=== PATIENT | female | born 1985 | race Caucasian/White ===

== ENCOUNTER 2017-02-12 03:40 | Inpatient (IN) | payer OTHER ==
[~2017-02-12] VITALS: Ht 154.9 cm; Wt 94.8 kg
[~2017-02-12 03:40] MED LIST: VICODIN 5-3251 EACH PO
[2017-02-12] MEDS ORDERED: Carboprost 250 mCg/mL Inj IM PRN ×2 (11:55→19:55)
[2017-02-12] MEDS ORDERED: Methylergonovine 0.2 mg/mL Inj IM PRN ×2 (11:55→19:55)
[2017-02-12] MEDS ORDERED: Lactated Ringer's 1,000 ML IV PRN (11:55)
[2017-02-12] MEDS ORDERED: Hemorrhage Kit, Post Partum XX ONE ×2 (11:55→19:55)
[2017-02-12] MEDS ORDERED: Sodium Chloride LOK Flush 10 mL Syringe IVFLUSH PRN (11:55)
[2017-02-12] MEDS ORDERED: Oxytocin 30 Units/500 mL LR 30 UNITS in IV Premix 1 EACH IV PRN ×2 (11:55→19:55)
[2017-02-12] MEDS ORDERED: Oxytocin 10 Unit/mL Inj IM PRN ×2 (11:55→19:55)
[2017-02-12] MEDS ORDERED: fentaNYL-PF 50 mCg/mL 2 mL Inj IVPUSH PRN (11:55)
[2017-02-12] MEDS ORDERED: Misoprostol 25 mCg/0.25 Tablet VAGINAL ONE ×2 (12:40→17:00)
[2017-02-12] MEDS ORDERED: Vancomycin Inj 1,000 MG in IV Premix 1 EACH IV ONE (12:40)
[2017-02-12 12:45] LABS: Mean Corpuscular Hemoglobin 29.7 pg (27.0-35.0); Mean Corpuscular Volume 91.9 fL (81-100)
[2017-02-12] MEDS ORDERED: Vancomycin Inj 1,000 MG in IV Premix 1 EACH IV SCH (12:46)
[2017-02-12] MEDS ORDERED: DOCO200C5 PO (13:49)
--- NOTE | 2017-02-12 18:35 | PCM.HPANE ---
Patient Data Surgeon Admitting Provider:Jacob Faith MD Attending Provider:Jacob Faith MD Primary Care Physician:Jacob Faith MD Other Provider:Gregory Peres Anesthesia Reason for Visit Induction INDUCTION Ht/WT & BMI Body Mass Index Allergies Coded Allergies: Penicillins (Verified Allergy, Severe, Anaphylaxis, 12/18/12) Diabetes History Hx Diabetes?: No MRSA MRSA: No Medications Active Scripts Hydrocod/APAP-Expunged, Do Not Renew! (VICODIN 5/325-Expunged Drug, Do Not Renew )1 Each Tablet1-2 Tab PO q4h prn #30 TAB Prov:Jacob Faith MD 12/20/12 Reported Medications Docosahexanoic Acid ( Dha)200 Mg [id number] Mg PO DAILY 02/12/17 History History of ENT Problems?: No Hx of Heart Problems?: No Hx of Respiratory Problem?: No Hx Neurologic Problems?: No Hx of GI Problems?: No Hx of Problems?: No Female Hx: Positive for:: Currently Hx Diabetes: No Smoking Status: Never Smoker Stop/Bang Risk Assessment Category Category 1A: Patient has history of documented sleep apnea, and HAS NOT received any narcotic, sedative or anesthesia administration during this stay. Category 1B: Patient has history of documented sleep apnea, and HAS received any narcotic , sedative or anesthesia administration during this stay Category 2: Patient has SUSPECTED Obstructive Sleep Apnea, and HAS received any narcotic , sedative or anesthesia administration during this stay. Category 3: Patient has SUSPECTED Obstructive Sleep Apnea and HAS NOT received narcotic, sedative or anesthesia administration during this stay. Category 4: Outpatient in Procedural Areas with known sleep apnea or who screen positive for High Risk via the STOP/BANG questionnaire. Meds/Labs/Diagnostics Admission Meds Current Medications Misoprostol 25 mcg 25 mcg ONCE ONCE VAGINAL Last administered on 02/12/17 12: 49; Start 02/12/17 at 12:40; Stop 02/12/17 at 12:41; Status DC Vancomycin/0.9 % Sod Chloride/ Premix (Vancomycin Inj/ IV Premix) 200 ml @ 106.667 mls/hr Q12 IV Last administered on 02/12/17 13:00; Start 02/12/17 at 12:46 Misoprostol (Cytotec) 25 mcg ONCE ONCE VAGINAL Last administered on 9/29/17at 17:06; Start 02/12/17 at 17:00; Stop 02/12/17 at 17:01; Status DC Labs Test 02/12/17 12:30 White Blood Count 7.1th/mm3 (3.8-10.1) Red Blood Count 3.47mil/mm3 (3.90-5.20) Hemoglobin 10.3g/dL (12.0-15.6) Hematocrit 31.9% (35.0-46.0) Mean Corpuscular Volume 91.9fL (81-100) Mean Corpuscular Hemoglobin 29.7pg (27.0-35.0) Mean Corpuscular Hemoglobin Concent 32.3% (32.0-37.0) Red Cell Distribution Width 14.5% (12.3-15.4) Platelet Count 193bil/L (150-400) Plan Impression Patient chart reviewed, patient interviewed and anesthestic plan with risks, benefits, and alternatives discussed, and informed consent obtained. Chirag Lloyd MD Feb 12, 2017 18:35
[2017-02-12] MEDS ORDERED: fentaNYL 2 mCg/mL-Bupivicaine 0.125% 100 mL Premix EPIDURAL ONE (18:36)
[2017-02-12] MEDS ORDERED: TdaP Vaccine 0.5 mL Inj IM ONE (19:55)
[2017-02-12] MEDS ORDERED: Measles-Mumps-Rubella Vaccine 0.5 mL Inj SUBQ ONE (19:55)
[2017-02-12] MEDS ORDERED: HYDROcodone-APAP 5-325 mg Tablet PO PRN (19:55)
[2017-02-12] MEDS ORDERED: Influenza (Adult) Vaccine 0.5 mL Syringe IM ONE (19:55)
[2017-02-12] MEDS ORDERED: Benzocaine (Dermoplast) 20% 60 Gm Spray TOPICAL PRN (19:55)
[2017-02-12] MEDS ORDERED: Witch Hazel-Glycerin Pads TOPICAL PRN (19:55)
[2017-02-12] MEDS ORDERED: LANOlin HPA 7 Gm Ointment TOPICAL PRN (19:55)
[2017-02-12] MEDS ORDERED: Lactated Ringer's 1,000 ML IV SCH (19:55)
[2017-02-12] MEDS ORDERED: Methylergonovine 0.2 mg/mL Inj ONE (21:13)
--- NOTE | 2017-02-12 21:46 | HP ---
[address] [address] HISTORY AND PHYSICAL PATIENT: BETI HARO : 1985 MR#: [id number] ADMIT: 02/12/2017 JOB ID: [id number] DATE: 02/12/2017 TIME OF NOTE: 1200 on 02/12/2017 [facility] NOTE: The patient has been followed prenatally at [facility], see record for details. course has been relatively uncomplicated. The patient has been found to have positive group B strep test recently, resistant to clindamycin in setting of significant PENICILLIN allergy. Vancomycin has thus been planned for prophylaxis. The patient has carried history of macrosomia, i.e., with 8-dszyk-25-ounce baby, and then a 9- pound baby, both delivered vaginally. The patient has been concerned that this baby is larger and has been very worried and, in fact, requested labor induction in an effort to avoid having similarly-sized large baby. She understood the pros and cons regarding labor induction, and she was admitted for the same, now at 39-1/7 weeks of gestation on February 12, 2017. In summary, then, as now at 39-1/7 weeks along and with prior macrosomia x2, patient requested labor induction, which is the reason for admission on February 12, 2017. PHYSICAL EXAMINATION ON ADMISSION: Height 61 inches. Neck: No thyromegaly. Lungs clear to auscultation and percussion. Heart: Regular in rate and rhythm. Abdomen: Fundal height greater than dates, vertex presentation. Positive heartbeat. Pelvic examination: Cervix in the 2 cm dilatation range. LABS: Admission hemoglobin 10+. IMPRESSION: 1. 39-1/7 weeks gestation. 2. Patient-requested labor induction at term in light of prior macrosomia, see #3. 3. Reproductive history, reproductive history: a. First --term vaginal delivery, 3-xbzld-52-ounce baby, epidural, labor induced. b. Second --39 week vaginal delivery, 9-pound baby, epidural, two-hour labor reported. c. Third --miscarriage d. Fourth --current. 4. Increased weight. 5. Positive group B Streptococcus at 35+ weeks of gestation. 6. Declined Tdap and flu shot. 7. Rubella immune. 8. Declined quad screen, note level-2 sonogram negative. 9. PENICILLIN allergy--breathing problems as a baby. 10. Family history of twins. PLAN: This patient was admitted to [facility] on February 12, 2017, in the setting of prior macrosomia. The patient had requested labor induction in an effort to avoid even larger baby. Note PENICILLIN allergy and clindamycin resistance, positive group B Strep, for vancomycin prophylaxis. Cytotec dose to be given for ripening/induction of labor, with Pitocin and/or artificial rupture of membranes to be subsequently accomplished if needed.
--- NOTE | 2017-02-12 21:56 | PROG NOTE ---
[address] [address] PROGRESS NOTE PATIENT: BETI HARO : 1985 MR#: [id number] ADMIT: 02/12/2017 JOB ID: [id number] DATE: 02/12/2017 TIME: 2100 [facility] NOTE: The patient was admitted this morning for labor induction in the setting of prior macrosomia, hoping to have smaller baby than previously. Cytotec dose was initially given and by three hours, some contractions were feeling a little stronger. Second Cytotec dose was then given and contractions became stronger and spontaneous rupture of membranes occurred, clear fluid. Uterine contractions definitely developed to an intense level at this point. Note that vancomycin dose had been given, 1 g IV, for prophylaxis in setting of group B Strep test positivity, PENICILLIN allergy, and clindamycin resistance. After rupture of membranes, cervix was soon checked and found to be at 4.5 cm. The patient requested epidural and I spoke with the anesthesiologist.
--- NOTE | 2017-02-12 22:44 | PROG NOTE ---
[address] [address] PROGRESS NOTE PATIENT: BETI HARO : 1985 MR#: [id number] ADMIT: 02/12/2017 JOB ID: [id number] DATE: 02/12/2017 at 2100 hours The patient was admitted to [facility] this morning for labor induction per her request in the setting of prior macrosomia. Cytotec dose was provided followed by a second dose, and uterine contractions then became notably more intense and spontaneous rupture of membranes occurred with clear fluid recovered. The patient requested epidural for anesthesia, yet anesthesiologist did not have time to place it as the patient's cervical dilatation swiftly changed between 4.5 and 10 cm. I was called with report of 10 cm dilatation and came directly to the Center from my Office. Patient, however, had been unable to stop pushing, having delivered baby with two pushes, under supervision of Dr. Farias, an electrical engineering professor who was in the [facility] at the time. Head and baby simply dropped out, followed by a minute of delayed cord clamping, then cord was clamped and cut. Placenta with membranes were then spontaneously expelled, intact. There was estimated about 300 cc of blood loss and some blood clots were noted, and thus intravenous Pitocin infusion in addition to a single dose of Methergine were provided. Bleeding was then controlled. Baby was active and crying and vigorous in mother's arms. Bleeding was minimal. I examined placenta and membranes which were noted to be intact. Vulvovaginal epithelium was also intact, without laceration. It certainly is anticipated that mother and baby will do very well during the timeframe. Note that the patient received a single dose of vancomycin 1 g IV as prophylaxis in the setting of group B strep test positivity, noting PENICILLIN ALLERGY and clindamycin resistance. Montessori Teacher will be informed. ANETA
[2017-02-13 05:49] LABS: Mean Corpuscular Hemoglobin 29.2 pg (27.0-35.0); Mean Corpuscular Volume 93.2 fL (81-100)
--- NOTE | 2017-02-13 13:39 | DIS ---
[address] [address] DISCHARGE SUMMARY PATIENT: BETI HARO : 1985 MR#: [id number] ADMIT: 02/12/2017 JOB ID: [id number] DIS: 02/13/2017 DISCHARGE DIAGNOSES: 1. A 39 and 1/7 week , delivered. 2. Prior macrosomia x2, status post two vaginal deliveries. PROCEDURES PERFORMED DURING HOSPITALIZATION: 1. Labor induction. 2. Vaginal delivery. HOSPITAL COURSE: This patient was admitted to [facility] for labor induction at 39-1/7 weeks along on the morning of February 12, 2017. The patient requested labor induction in the setting of prior macrosomia x2, hoping to have no larger baby. Two doses of Cytotec were administered, spontaneous rupture of membranes occurred, and vancomycin 1 g IV was given for prophylaxis in the setting of group B strep test positivity. Once reaching the active phase of labor, labor went precipitously, reportedly 15 minutes from 4.5 cm to delivery. Baby was active and crying and vigorous. There were no lacerations. Placenta with membranes were expelled readily completely. The patient was ready for discharge on the first day, February 13, 2017. She had no concerning bleeding, she was not dizzy. Vitals were stable, she remained afebrile. She required nothing for pain. She had no leg pain or shortness of breath and she handled the baby well. hemoglobin 10.7. DISCHARGE PROGRAM: The patient will call p.r.n., yet otherwise will followup at six weeks for checkup. She will observe pelvic rest for six weeks. Her only discharge medication is vitamins. She will continue to use while nursing.
[2017-02-13] MEDS ORDERED: .Epic Conversion Completed XX PRN (18:20)
--- NOTE | 2017-02-13 23:32 | PCM.DIOB ---
Obstetrical Disch Instruction Dates of Hospitalization Date of Hospital Admission Feb 12, 2017 at 11:16 Providers Admitting Physician: Jacob Faith MD Primary Care Physician: Jacob Faith MD Attending Physician: Jacob Faith MD Discharge Diagnosis Problems: (1) Status: Acute ICD Code: Z33.1 Diet Discharge Diet: No restrictions Activity Discharge Activity-General: Pelvic Rest for 6 weeks Dressing and Incisional Care Hygiene: May shower, Perineal care, Sitz bath, Dermoplast spray, Witch Cathy pads, Ice Follow Up Plan Follow-up appointment: Weeks (Call Office in the afternoon of 02/15/17 to schedule appointment with Dr. Faith in 6 weeks.) Call your provider for: Fever or Chills, Shortness of breath, Heavy vaginal bleeding, Red painful breasts Jacob Faith MD Feb 13, 2017 23:32
== END 2017-02-13 23:45 | disposition home or self-care (01) | DRG 775 ==
LOC: FBC 11:16
PROVIDERS: ADMIT Obstetrics & Gynecology; ATTEND Obstetrics & Gynecology
PROC: 10E0XZZ Delivery of Products of Conception, External Approach (ICD-10-PCS; principal; 2017-02-12)
PROC: 3E0P7GC Introduction of Other Therapeutic Substance into Female Reproductive, Via Natural or Artificial Opening (ICD-10-PCS; 2017-02-12)
PROC: 10907ZC Drainage of Amniotic Fluid, Therapeutic from Products of Conception, Via Natural or Artificial Opening (ICD-10-PCS; 2017-02-12)
DX: O99.824 Streptococcus B carrier state complicating childbirth (principal); Z3A.39 39 weeks gestation of pregnancy; Z37.0 Single live birth